=== PATIENT | female | born 1970 | race Caucasian/White ===

== ENCOUNTER → 2016-08-15 | Outpatient (CLI) | payer MEDICARE, MEDICAID ==
[~2016-08-15] MED LIST: ALBU8.5H5 IH; BUPR100T4 PO; CYCL-83 PO; FLUO40CA40 PO; HYDR-1372 PO; LAMO200T49 PO; METH10TA82 PO; MULT-806 PO; SALINE FLUSH 10ml SYRINGE ONE; SINCALIDE 5 MCG/VIAL IJ ONE; SODIUM CHLORIDE (Bacteriostatic) 30ml VIAL ONE; [UNRECOGNIZED DRUG - CODE] PO
--- NOTE | 2016-08-15 12:58 | DI ---
Indication: ITS.REASON: R10.11 RUQ ABD PAIN PROCEDURE: NM HEPATOBIL/EF: Encounter: Initial Comparison: None Technique: 6.3 mCi of Tc-99m mebrofenin was injected intravenously. At approximately minutes following this administration, 1.7 mL of Kinevac was administered intravenously. Anterior planar images were obtained and a time/activity curve was calculated. FINDINGS: Radiotracer uptake is seen homogenously within the liver. There is normal clearance of radiotracer from the blood pool. The common bile duct is visualized at approximately 6 minutes. The gallbladder is visualized by 7 minutes, and radiotracer is excreted into the small bowel. There is no evidence of radiotracer outside the biliary or gastrointestinal tract. The gallbladder ejection fraction is normal at 98%. IMPRESSION: 1. Gallbladder visualization excluding acute cholecystitis. 2. Normal gallbladder ejection fraction of 98%, excluding biliary dyskinesia. .
== END ==
LOC: IMA 10:06
PROVIDERS: ATTEND Physician Assistant Medical
DX: R10.11 Right upper quadrant pain (principal)
CPT/HCPCS: 78227; A9537; J2805